=== PATIENT | male | born 1955 | race Caucasian/White ===

== ENCOUNTER 2019-11-26 13:30 | Outpatient (AMBR) | payer OTHER, SELFPAY ==
--- NOTE | 2019-11-22 13:34 | PTNOTE_ITS ---
PT OP Initial Eval Patient Information Visit Reasons: right knee post op Medical Diagnosis: Z96.651 Treatment Dx #1: Right Knee Mobility Deficits Treatment Dx #2: Right Knee Weakness Start of Care: 11/22/19 Date of Onset: 11/11/19 Initial Assessment Subjective Pt is a 64 y/o male s/p right TKA 11/11/19 secondary to knee OA. Pt still has knee pain (7/10) with activities. Pt has limitation with walking, standing, chores, self care, cooking, cleaning, recreational activities, squatting, and kneeling activities. Objective Right Knee AROM: -21 deg to 91 deg Right Knee MMTs Quads: 3-/5 Hs: 3-/5 Right Hip MMTs Glute Med: 3-/5 Glute Max: 3-/5 SLS: unable SLR: unable Gait Observation: step to antalgic pattern with FWW Assessment Pt demonstrate right knee mobility and strength deficits s/p TKA leading to decline function. Pt will benefit from physical therapy to increase strength, mobility, and work on ambulation Short Term and Long-Term Goals 1) Increase right knee flexion AROM to 120 deg in 12 wks to be able to perform squatting activities 2) Increase right knee MMTs to 4-/5 in 12 wks to be able to perform stairs and steps 3) Increase right hip MMTs to 4-/5 in 12 wks to be able to ambulate without AD for more than 2 hrs 4) Decrease knee pain to 2/10 in 12 wks to be able to perform chores 5) Increase SLS to 20 sec in 12 wks to be able to perform self care activities 6) Indep with HEP Treatment Plan 1) Manual Therapy 2) Therapeutic Activities 3) Therapeutic Exercises 4) Modalities (ice, heat) 5) Gait Training 6) Balance Training Frequency and Duration 2 x wk for 12 wks Certification Dates: 11/22/19 to 02/22/20 Office Procedures PT Procedures PT Date of Service: 11/22/19 OP PT Eval Mod Complex 30 minutes: Yes
--- NOTE | 2019-11-26 15:49 | PT.ODAYNRPT ---
PT Outpatient Daily Note Date of Service: November 26, 2019 OP Daily Note Visit Reasons: right knee post op Outpatient Physical Therapy Treatment Date: 11/26/19 Subjective: Pt's knee is feeling better. Pt continues to do his butt squeeze at home. He's been trying to get his knee straigth Objective: Please see flow chart for list of ther ex performed Assessment: tolerate exercises performed; guarded with PROM but able to relax after a few mins Plan: Continue with PT Length of Time (minutes) of Treatment: 45 Minutes Office Procedures PT Procedures PT Date of Service: 11/22/19 OP PT Eval Mod Complex 30 minutes: Yes PT Procedures PT Date of Service: 11/26/19 Therapeutic Exercise 30 minutes: Yes Manual Etl Application Developer 15 minutes: Yes
== END 2019-11-26 23:59 | disposition home or self-care (01) ==
PROVIDERS: PCP Family Medicine; Referring Provider Family Medicine; Visit Provider Student in an Organized Health Care Education/Training Program
DX: Z47.1 Aftercare following joint replacement surgery (principal); Z96.651 Presence of right artificial knee joint; M25.561 Pain in right knee; R53.1 Weakness
CPT/HCPCS: 97110; 97140; 97162

== ENCOUNTER 2019-12-30 10:32 | Outpatient (AMBR) | payer OTHER, SELFPAY ==
--- NOTE | 2019-12-30 11:06 | PT.ODAYNRPT ---
PT Outpatient Daily Note Date of Service: December 30, 2019 OP Daily Note Visit Reasons: RIGHT KNEE POST OP Outpatient Physical Therapy Treatment Date: 12/30/19 Subjective: pt states his knee still swells up and is warm to touch. Objective: see flow sheet. Assessment: stretching his knee into flexion and extension due lack of ROM in both positions. he does ambulate with SPC and stiff leg. needs cuing to flex the knee during ambulation. his knee is very stiff as noted during PROM in both directions. his knee flexion ROM does not seem to improved from last visit. it was warm to touch. he is more sensitive with knee extension. with the sci fit he takes a few mins for it warm up before the full pedal. Plan: continue POC per PT. Length of Time (minutes) of Treatment: 30 Minutes Office Procedures PT Procedures PT Date of Service: 12/30/19 Therapeutic Exercise 30 minutes: Yes
--- NOTE | 2020-01-02 11:46 | PTNOTE_ITS ---
PT Outpatient Daily Note Date of Service: January 02, 2020 OP Daily Note Visit Reasons: RIGHT KNEE POST OP Outpatient Physical Therapy Treatment Date: 01/02/20 Subjective: Pt mention that his knee is still stiff. Pt's been able to swim a little and was able to put on the saddle for his horse. Objective: Please see flow chart for list of ther ex performed Assessment: still exhibit limited knee ROM in extension and flexion. Pt less guarded with passive stretch; still exhibit Hs tightness. cues to flex knee in preswing Plan: Continue with PT Length of Time (minutes) of Treatment: 55 Minutes Office Procedures PT Procedures PT Date of Service: 01/02/20 Therapeutic Exercise 45 minutes: Yes Manual Medical Technologist Clinical 15 minutes: Yes PT Procedures PT Date of Service: 12/30/19 Therapeutic Exercise 30 minutes: Yes
--- NOTE | 2020-01-07 12:15 | PTNOTE_ITS ---
PT Outpatient Daily Note Date of Service: 01/07/20 OP Daily Note Visit Reasons: RIGHT KNEE POST OP Outpatient Physical Therapy Treatment Date: 01/07/20 Subjective: Pt mention that his knee is better. Pt has less pain with walking and standing now. Objective: Please see flow chart for list of ther ex performed Assessment: tolerate exercises with minimal pain; able to stretch patient more into flexion. cue to flex knee during pre-swing Plan: Continue with PT Length of Time (minutes) of Treatment: 55 Minutes Office Procedures PT Procedures PT Date of Service: 01/02/20 Therapeutic Exercise 45 minutes: Yes Manual Machine Long Goods Helper 15 minutes: Yes PT Procedures PT Date of Service: 12/30/19 Therapeutic Exercise 30 minutes: Yes PT Procedures PT Date of Service: 01/07/20 Therapeutic Exercise 45 minutes: Yes Manual Machine Long Goods Helper 15 minutes: Yes
--- NOTE | 2020-01-09 11:38 | PTNOTE_ITS ---
PT Outpatient Daily Note Date of Service: 01/09/20 OP Daily Note Visit Reasons: RIGHT KNEE POST OP Outpatient Physical Therapy Treatment Date: 01/09/20 Subjective: Pt's knee is much better. Pt notice he can bend his knee more with less pain. Pt still has difficulty with kneeling and deep squat due to limited knee ROM Objective: Please see flow chart for list of ther ex performed Assessment: decrease Hs tightness which is increase Pt's knee extension. Contract relax seems to help Pt stretch more into flexion with prolonged stretch. Plan: Continue with PT Length of Time (minutes) of Treatment: 55 Minutes Office Procedures PT Procedures PT Date of Service: 01/02/20 Therapeutic Exercise 45 minutes: Yes Manual Osteopathy Doctor 15 minutes: Yes PT Procedures PT Date of Service: 12/30/19 Therapeutic Exercise 30 minutes: Yes PT Procedures PT Date of Service: 01/07/20 Therapeutic Exercise 45 minutes: Yes Manual Osteopathy Doctor 15 minutes: Yes PT Procedures PT Date of Service: 01/09/20 Therapeutic Exercise 45 minutes: Yes Manual Osteopathy Doctor 15 minutes: Yes
--- NOTE | 2020-01-13 12:13 | PT.ODAYNRPT ---
PT Outpatient Daily Note Date of Service: 01/13/20 OP Daily Note Visit Reasons: RIGHT KNEE POST OP Outpatient Physical Therapy Treatment Date: 01/13/20 Subjective: Pt mention that his knee is better still a little stiff. Pt's been busy with family due to older brother and planning his arrangement Objective: Please see flow chart for list of ther ex performed Assessment: tolerate exercises; still exhibit knee stiffness leading to decrease knee flexion and extension Plan: Continue with PT Length of Time (minutes) of Treatment: 45 Minutes Office Procedures PT Procedures PT Date of Service: 01/02/20 Therapeutic Exercise 45 minutes: Yes Manual Certification And Selection Specialist 15 minutes: Yes PT Procedures PT Date of Service: 01/13/20 Therapeutic Exercise 30 minutes: Yes Manual Certification And Selection Specialist 15 minutes: Yes PT Procedures PT Date of Service: 12/30/19 Therapeutic Exercise 30 minutes: Yes PT Procedures PT Date of Service: 01/07/20 Therapeutic Exercise 45 minutes: Yes Manual Certification And Selection Specialist 15 minutes: Yes PT Procedures PT Date of Service: 01/09/20 Therapeutic Exercise 45 minutes: Yes Manual Certification And Selection Specialist 15 minutes: Yes
--- NOTE | 2020-01-16 12:54 | PT.ODAYNRPT ---
PT Outpatient Daily Note Date of Service: 01/16/20 OP Daily Note Visit Reasons: RIGHT KNEE POST OP Outpatient Physical Therapy Treatment Date: 01/16/20 Subjective: Pt's knee is feeling good. Pt was in his jacuzzi prior to therapy session which seems to help loosen the knee. Objective: Please see flow chart for list of ther ex performed Assessment: still exhibit limited knee flexion ROM; less guarded with stretch but resistance from scar tissue Plan: Continue with PT Length of Time (minutes) of Treatment: 55 Minutes Office Procedures PT Procedures PT Date of Service: 01/02/20 Therapeutic Exercise 45 minutes: Yes Manual Store Warehouse Associate 15 minutes: Yes PT Procedures PT Date of Service: 01/13/20 Therapeutic Exercise 30 minutes: Yes Manual Store Warehouse Associate 15 minutes: Yes PT Procedures PT Date of Service: 12/30/19 Therapeutic Exercise 30 minutes: Yes PT Procedures PT Date of Service: 01/07/20 Therapeutic Exercise 45 minutes: Yes Manual Store Warehouse Associate 15 minutes: Yes PT Procedures PT Date of Service: 01/09/20 Therapeutic Exercise 45 minutes: Yes Manual Store Warehouse Associate 15 minutes: Yes PT Procedures PT Date of Service: 01/16/20 Therapeutic Activity 15 minutes: Yes Therapeutic Exercise 30 minutes: Yes Manual Store Warehouse Associate 15 minutes: Yes
== END 2020-01-16 09:17 | disposition home or self-care (01) ==
PROVIDERS: PCP Student in an Organized Health Care Education/Training Program; Referring Provider Student in an Organized Health Care Education/Training Program; Visit Provider Student in an Organized Health Care Education/Training Program
DX: Z47.1 Aftercare following joint replacement surgery (principal); Z96.651 Presence of right artificial knee joint; M25.561 Pain in right knee; R26.2 Difficulty in walking, not elsewhere classified
CPT/HCPCS: 97110; 97140; 97530

== ENCOUNTER → 2024-09-09 | Outpatient (CLI) | payer OTHER, SELFPAY ==
[2024-09-09 08:51] LABS: Glucose Estimated Average 160 mg/dL (80-131); Hemoglobin A1C 7.2 % Hgb (4.8-6.0)
== END | disposition home or self-care (01) ==
PROVIDERS: PCP Family Medicine; Referring Provider Family Medicine; Visit Provider Family Medicine
DX: E11.9 Type 2 diabetes mellitus without complications (principal)
CPT/HCPCS: 36415; 83036

== ENCOUNTER → 2024-12-17 | Outpatient (CLI) | payer OTHER, SELFPAY ==
[2024-12-17 08:37] LABS: Glucose Estimated Average 146 mg/dL (80-131); Hemoglobin A1C 6.7 % Hgb (4.8-6.0)
== END | disposition home or self-care (01) ==
LOC: COPL 07:35
PROVIDERS: PCP Family Medicine; Referring Provider Family Medicine; Visit Provider Family Medicine
DX: E11.9 Type 2 diabetes mellitus without complications (principal)
CPT/HCPCS: 36415; 83036

== ENCOUNTER → 2025-03-27 | Outpatient (CLI) | payer OTHER, SELFPAY ==
[2025-03-27 08:53] LABS: Glucose Estimated Average 151 mg/dL (80-131); Hemoglobin A1C 6.9 % Hgb (4.8-6.0)
== END | disposition home or self-care (01) ==
LOC: COPL 07:09
PROVIDERS: PCP Family Medicine; Referring Provider Family Medicine; Visit Provider Family Medicine
DX: E11.9 Type 2 diabetes mellitus without complications (principal)
CPT/HCPCS: 36415; 83036